=== PATIENT | male | born 2000 | race Asian ===

== ENCOUNTER 2018-03-30 16:17 | Emergency (ER) | payer OTHER ==
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
[2018-03-30] MEDS ORDERED: CETIRIZINE 10 MG TABLET PO STA (17:15)
[2018-03-30] MEDS ORDERED: FAMOTIDINE 20 MG TABLET PO STA (17:15)
[2018-03-30] MEDS ORDERED: DEXAMETHASONE 10 MG/ML VIAL PO STA (17:15)
[2018-03-30] MEDS ORDERED: diphenhydrAMINE INJ 50 MG/ML VIAL IM STA (17:15)
[2018-03-30] MEDS ORDERED: CHERRY SYRUP 10 ML UDC PO ONE (17:24)
[2018-03-30 19:16] VITALS: BP 135/89
== END 2018-03-30 19:17 | disposition home or self-care (01) ==
LOC: ED 16:17
DX: T78.40XA Allergy, unspecified, initial encounter (principal); X58.XXXA Exposure to other specified factors, initial encounter; L50.9 Urticaria, unspecified; L30.9 Dermatitis, unspecified
CPT/HCPCS: 96372; 99283; A9270; J1200

== ENCOUNTER 2023-05-07 17:25 | Emergency (ER) | payer OTHER, BC ==
[2023-05-07 19:30] VITALS: BP 164/71; O2SAT 98
[2023-05-07] MEDS ORDERED: methocarbamoL 500 MG TABLET PO STA (19:44)
[2023-05-07] MEDS ORDERED: MELOXICAM 7.5 MG TABLET PO STA (19:44)
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
== END 2023-05-07 20:00 | disposition home or self-care (01) ==
LOC: ED 17:25
DX: S39.012A Strain of muscle, fascia and tendon of lower back, initial encounter (principal); V49.40XA Driver injured in collision with unspecified motor vehicles in traffic accident, initial encounter; Y92.411 Interstate highway as the place of occurrence of the external cause; Z79.899 Other long term (current) drug therapy
CPT/HCPCS: 99282; 99283; A9270

== ENCOUNTER 2023-07-31 20:03 | Emergency (ER) | payer BC, OTHER ==
[2023-07-31 20:15] VITALS: BP 143/89; O2SAT 100
[2023-07-31] MEDS ORDERED: KETOROLAC 30 MG/ML VIAL IM STA (20:26)
--- NOTE | 2023-07-31 20:28 | ED Physician Documentation ---
History of Present Illness - Stated complaint Stated Complaint: R NECK PX - Chief complaint Chief Complaint: Heent - History obtained from History obtained from: Patient - Additonal information Additional information: 22yM p/w R neck/shoulder/cp sudden onset while lifting 80lb of weights while at the gym today. worse with rom of shoulder, neck and with pressing on the R neck and shoulder. denies prior injury. has not taken any meds yet. denies numbness or weakness. states he felt soa immediately after from the pain but feels better now. PD PAST MEDICAL HISTORY - Past Medical History Cardiovascular: None Respiratory: Asthma Neuro: Migraines Endocrine/Autoimmune: None GI: None : None HEENT: None Psych: None Musculoskeletal: None Derm: Eczema - Past Surgical History Past Surgical History: No - Present Medications Home Medications: Ambulatory Orders Medication Instructions Recorded Confirmed No Known Home Medications 07/31/23 07/31/23 - Allergies Allergies/Adverse Reactions: Allergies Allergy/AdvReac Type Severity Reaction Status Date / Time amoxicillin AdvReac Unknown Verified 07/31/23 20:14 - Social History Does the pt smoke?: No Smoking Status: Never smoker Does the pt drink ETOH?: No Does the pt have substance abuse?: No - Immunizations Immunizations are current?: Yes - POLST Patient has POLST: No PD ED PE NORMAL - Vitals Vital signs reviewed: Yes - General General: Alert and oriented X 3, No acute distress, Well developed/nourished - HEENT HEENT: Atraumatic, PERRL, EOMI, Moist mucous membranes, Pharynx benign - Neck Neck: Supple, no meningeal sign, No bony TTP - Cardiac Cardiac: RRR - Respiratory Respiratory: No respiratory distress, Clear bilaterally - Derm Derm: Normal color, Warm and dry - Extremities Extremities: No deformity, No tenderness to palpate, Normal ROM s pain, Other (R shoulder discomfort to palpation in trapezius muscle distribution. 2+ pulse RUE. normal strength and sensation) Results - Vitals Vitals: Vital Signs - 24 hr 07/31/23 20:08 Temperature 36.4 C L Heart Rate 100 Respiratory 16 Rate Blood Pressure 143/89 H O2 Saturation 100 Oxygen O2 Source Room air PD Medical Decision Making - ED course ED course: 22yM presents with R shoulder, upper chest and neck pain starting while lifting weights today, found to be in muscular distribution and reproducible with palpation. likely muscle strain given the mechanism. 30mg IM toradol provided with improvement in pain. Symptomatic care discussed. return precautions given. Departure - Departure Disposition: 01 Home, Self Care Clinical Impression: Right shoulder strain Condition: Stable Instructions: ED Sprain Strain Neck Comments: You were seen in the emergency department for Pain in the neck, shoulder and upper chest after lifting weights. This appears to be a muscle strain. You can take ibuprofen 400 mg every 6 hours as needed with a meal for pain and healing. Icy hot or lidocaine patches are also often helpful and available over the counter. Please follow-up with your primary care provider and return to the emergency department if you have any new or worsening symptoms or other concerns. Forms: PCP List Discharge Date/Time: 07/31/23 21:03
== END 2023-07-31 21:03 | disposition home or self-care (01) ==
LOC: ED 20:03
DX: S46.911A Strain of unspecified muscle, fascia and tendon at shoulder and upper arm level, right arm, initial encounter (principal); X50.0XXA Overexertion from strenuous movement or load, initial encounter
CPT/HCPCS: 96372; 99283